=== PATIENT | female | born 1990 | race African-American/Black ===

== ENCOUNTER 2016-12-15 14:58 | Emergency (ER) | payer OTHER ==
[2016-12-15 15:02] VITALS: BP 159/86; PULSE 79; TEMP 98.5; BMI 32.9
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
[2016-12-15] MEDS ORDERED: KETOROLAC TROMETHAMINE 60 MG/2 ML VIAL IM ONE ×2 (16:20→16:22)
[2016-12-15] MEDS ORDERED: KETOROLAC TROMETHAMINE 60 MG/2 ML VIAL ONE (16:22)
[2016-12-15] MEDS ORDERED: diazePAM 5 MG TABLET PO ONE (17:10)
[2016-12-15] MEDS ORDERED: diazePAM 5 MG TABLET ONE (17:15)
== END 2016-12-15 17:43 | disposition home or self-care (01) ==
LOC: JERFT 14:58
PROC: 3E0233Z Introduction of Anti-inflammatory into Muscle, Percutaneous Approach (ICD-10-PCS; principal; 2016-12-15)
DX: M54.6 Pain in thoracic spine (principal); M54.5 Low back pain; V78.6XXA Passenger on bus injured in noncollision transport accident in traffic accident, initial encounter; Y92.414 Local residential or business street as the place of occurrence of the external cause; Y93.89 Activity, other specified; Y99.8 Other external cause status
CPT/HCPCS: 72070-TC; 72100-TC; 84703; 99281-25

== ENCOUNTER 2017-01-02 15:45 | Emergency (ER) | payer OTHER ==
[2017-01-02 15:49] VITALS: BP 145/65; PULSE 70; TEMP 98; BMI 33.8
[2017-01-02] MEDS ORDERED: IBUPROFEN 400 MG TABLET (FP) PO ONE ×2 (16:58→17:08)
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
== END 2017-01-02 17:21 | disposition home or self-care (01) ==
LOC: JERFT 15:45
DX: M54.5 Low back pain (principal); V78 Bus occupant injured in noncollision transport accident
CPT/HCPCS: 99281-25

== ENCOUNTER 2017-04-04 10:33 | Emergency (ER) | payer OTHER ==
[2017-04-04 10:41] VITALS: BP 142/70; PULSE 67; TEMP 98; BMI 33.8
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
[2017-04-04] MEDS ORDERED: KETOROLAC TROMETHAMINE 60 MG/2 ML VIAL IM ONE (11:48)
[2017-04-04] MEDS ORDERED: KETOROLAC TROMETHAMINE 60 MG/2 ML VIAL ONE (12:00)
== END 2017-04-04 12:09 | disposition home or self-care (01) ==
LOC: JERFT 10:33
PROC: 3E0233Z Introduction of Anti-inflammatory into Muscle, Percutaneous Approach (ICD-10-PCS; principal; 2017-04-04)
DX: M54.42 Lumbago with sciatica, left side (principal)
CPT/HCPCS: 84703; 99281-25

== ENCOUNTER 2018-03-29 16:56 | Emergency (ER) | payer OTHER ==
--- NOTE | 2018-03-29 17:54 | PDOC ---
Rapid Medical Evaluation Time Seen by Provider: 03/29/18 17:50 Medical Evaluation: Allergies Allergy/AdvReac Type Severity Reaction Status Date / Time peanut Allergy Verified 04/04/17 10:42 I have performed a brief in-person evaluation of this patient. The patient presents with a chief complaint of: b/l flank pain x 2 days. pain is worse with movement. Pain started while having sex. Patient is approximately 7.5 weeks . first OB apptmt tomorrow. No vaginal bleeding. Pertinent physical exam findings: pain reproduced when patient bends down to touch her toes. I have ordered the following: hcg, UA The patient will proceed to the ED for further evaluation. Discharge Disposition - Diagnosis Abdominal muscle pain - Referrals - Patient Instructions - Post Discharge Activity
[2018-03-29 17:57] VITALS: BP 117/70; PULSE 73; TEMP 98.2; BMI 34.7
--- NOTE | 2018-03-29 18:17 | PDOC ---
History of Present Illness - General Chief Complaint: Pain Stated Complaint: ABD PAIN Time Seen by Provider: 03/29/18 17:50 History Source: Patient Exam Limitations: No Limitations - History of Present Illness Travel History: No Initial Comments: 03/29/18 18:10 27 yr female LMP 02/05/18 positive home tests states last night after sexual intercourse she started having "tightneing sensation" around lower abdomen, pelvis. no bleeding , no cramping no vaginal discharge or back pain. . no pmhx Past History - Past Medical History Allergies/Adverse Reactions: Allergies Allergy/AdvReac Type Severity Reaction Status Date / Time peanut Allergy Verified 03/29/18 17:53 Home Medications: Ambulatory Orders NK [No Known Home Medication] 03/29/18 Asthma: Yes COPD: No - Suicide/Smoking/Psychosocial Hx Smoking History: Never smoked Have you smoked in the past 12 months: Yes Number of Cigarettes Smoked Daily: 3 Information on smoking cessation initiated: No 'Breaking Loose' booklet given: 01/02/17 Hx Alcohol Use: No Drug/Substance Use Hx: No Substance Use Type: None Abd/GI Specific PMHX - Complaint Specific PMHX Colitis: No Diverticulitis: No Gall Bladder Disease: No GERD: No Hepatitis: No Irritable Bowel Synd (IBS): No Pancreatitis: No GI Ulcer Disease: No Review of Systems - Review of Systems Able to Perform ROS?: Yes Is the patient limited Greek proficient: No Constitutional: No: Symptoms Reported HEENTM: No: Symptoms Reported Respiratory: No: Symptoms reported Cardiac (ROS): No: Symptoms Reported ABD/GI: Yes: Symptoms Reported : No: Symptoms Reported *Physical Exam - Vital Signs Last Vital Signs Temp Pulse Resp BP Pulse Ox 98.2 F 73 18 117/70 99 03/29/18 17:53 03/29/18 17:53 03/29/18 17:53 03/29/18 17:53 03/29/18 17:53 - Physical Exam General Appearance: Yes: Nourished, Appropriately Dressed HEENT: positive: EOMI, SHOLA Female Pelvic Exam: positive: other Gastrointestinal/Abdominal: positive: Normal Bowel Sounds, Soft. negative: Tender Lymphatic: negative: Adenopathy Musculoskeletal: positive: Normal Inspection Extremity: positive: Normal Capillary Refill, Normal Inspection, Normal Range of Motion Integumentary: positive: Normal Color, Dry, Warm Neurologic: positive: oleomargarine maker II-XII NML intact, Fully Oriented, Alert, Normal Mood/ Affect, Normal Response, Motor Strength 01/13 Medical Decision Making - Medical Decision Making 03/29/18 18:12 cc: lower pelvis tightening worse with bending forward neg chills neg fever, neg back pain or vag bleeding will r/o UTI confirm pt has appointment tomorrow with [facility] non tender abdomen, soft, no guarding no localized pain *DC/Admit/Observation/Transfer Diagnosis at time of Disposition: Abdominal muscle pain, Pelvic pain - Discharge Dispostion Disposition: HOME Condition at time of disposition: Good - Referrals - Patient Instructions Additional Instructions: follow up tomorrow with your FIELD EXAMINER as planned they can repeat the test with blood work if needed take motrin for any pain - Post Discharge Activity
[2018-03-29 18:23] LABS: URINE APPEARANCE SLCLOUDY; URINE BILIRUBIN NEGATIVE (<2.0 mg/dL); URINE COLOR YELLOW; URINE GLUCOSE (UA) NEGATIVE (NEGATIVE); URINE KETONE NEGATIVE (NEGATIVE); URINE LEUK ESTERASE NEGATIVE (NEGATIVE); URINE NITRITE NEGATIVE (NEGATIVE); URINE PROTEIN NEGATIVE (NEGATIVE); URINE UROBILINOGEN 4.0 E.U/dl mg/dL (0.2-1.0)
[2018-03-29 18:25] LABS: HCG,QUALITATIVE URINE NEGATIVE
== END 2018-03-29 19:17 | disposition home or self-care (01) ==
LOC: JERFT 16:56
DX: O26.891 Other specified pregnancy related conditions, first trimester (principal); R10.2 Pelvic and perineal pain; M79.1 Myalgia; Z3A.01 Less than 8 weeks gestation of pregnancy
CPT/HCPCS: 81003; 84703; 99281-25

== ENCOUNTER 2018-12-21 21:11 | Emergency (ER) | payer OTHER ==
[2018-12-21 21:24] VITALS: BP 127/78; PULSE 78; TEMP 98.2; BMI 38.4
[2018-12-21] MEDS ORDERED: ACETAMINOPHEN 325 MG TABLET (FP) PO ONE (22:35)
--- NOTE | 2018-12-21 22:35 | PDOC ---
Attending Attestation - HPI HPI: The patient is a 28 year old female, with a significant PMH of asthma, who presents to the emergency department today complaining of multiple cold symptoms for 6 days. Patient notes she began experiencing diarrhea 6 days ago, which she thinks was related to drinking the night before. The next day, patient woke up with nasal congestion, sinus pressure, productive cough with yellow sputum, intermittent fevers (highest was 102), and headache. She reports associated decreased PO intake secondary to loss of appetite. Patient went to urgent care 4 days ago, where she was negative for flu and strep. Patient reports using her inhaler more frequently to help alleviate her symptoms. She also endorses being 10 days late on her period, but had a test done at urgent care which was negative. Patient returns to the ED today because her symptoms have not resolved. The patient denies chest pain, headache and dizziness. Denies fever, chills, nausea, vomit, diarrhea and constipation. Denies dysuria, frequency, urgency and hematuria. Allergies: NKA Past surgical history: None reported Social history: Current tobacco smoker (1 pack a day). Marijuana user. PCP: Dr. Ruma Mccormack 12/21/18 23:57 - Physicial Exam PE: GENERAL: +Smells like marijuana. Awake, alert, and oriented. The patient is in no acute distress. HEAD: +Severe sinus tenderness to palpation. Normal with no signs of trauma. EYES: PERRLA, EOMI, sclera anicteric, conjunctiva clear. ENT: +Severe sinus tenderness to palpation. Ears normal, nares patent, oropharynx clear without exudates. Moist mucous membranes. NECK: Normal range of motion, supple without lymphadenopathy, JVD, or masses. LUNGS: Breath sounds equal, clear to auscultation bilaterally. No wheezes, and no crackles. HEART:Regular rate and rhythm, normal S1 and S2 without murmur, rub or gallop. ABDOMEN: Soft, nontender, normoactive bowel sounds. No guarding, no rebound. No masses palpable. EXTREMITIES: Normal range of motion, no edema. No clubbing or cyanosis. No erythema, or tenderness. NEUROLOGICAL: Cranial nerves II through XII grossly intact. Normal speech. No focal neurological deficits. MUSCULOSKELETAL: Back non-tender to palpation, no CVA tenderness SKIN: Warm, Dry, normal turgor, no rashes or lesions noted. 12/21/18 23:58 - Medical Decision Making EXAM#: TYPE/EXAM: RESULT: [id number] RAD/CHEST PA LAT Clinical information: Rule out infection. Impression Unremarkable examination without evidence of acute lung disease. Reported By: Claudia Acevedo MD 12/21/18 23:58 Documentation prepared by TAD Reddy, acting as medical staff specialist for Christine Beard MD. 12/22/18 03:56 <Kellie Ponce - Last Filed: 12/22/18 03:56> - Resident Resident Name: Libra Holt - ED Attending Attestation I have performed the following: I have examined & evaluated the patient, The case was reviewed & discussed with the resident, I agree w/resident's findings & plan, Exceptions are as noted - Medical Decision Making 12/21/18 23:35 Ms Don presents to the ER with a complaint of congestion, cough, fevers yesterday symptoms began last week with 1 day of diarrhea since then she has noted URI symptoms Was seen at Urgent Care 4 days ago where Influenza and rapid strep were negative Pt told symptoms were viral and anticipated that she would be able to return to work Pt continues to feel ill 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 Pt has a h/o asthma Was using MDI and neb Pt continues to smoke cigarettes and Marijuanna Temp yesterday 101 on exam: Lungs clear RRR Maxillary tenderness to palpation Will do: UHcg CXR Plan to d/x on Augmentin, sudafed and afrin spray Follow up with PMD 12/22/18 00:14 CXR - nml Will discharge to home with treatment for sinusitis Clinical impression: sinusitis, initial presentation <Christine Beard - Last Filed: 12/22/18 20:26> *DC/Admit/Observation/Transfer <Kellie Ponce - Last Filed: 12/22/18 03:56> <Christine Beard - Last Filed: 12/22/18 20:26> Diagnosis at time of Disposition: Tenderness over frontal sinus, Cough, Congestion of nasal sinus - Discharge Dispostion Disposition: HOME - Prescriptions Prescriptions: Amoxicillin/Potassium Clav [Augmentin 875-125 Tablet] 1 each PO BID #10 tablet Pseudoephedrine HCl [Sudafed -] 30 mg PO DAILY #7 tablet - Referrals Referrals: Ruma Mccormack MD [Primary Care Provider] - - Patient Instructions Additional Instructions: please follow up with your primary care physician within one week please take the medication augmentin twice a day for 5 days with food please take sudafed alternate with tylenol and advil every 4-6 hours drink plenty of fluids if you being to experience worsening or symptoms please return to the emergency room immediately - Post Discharge Activity Forms/Work/School Notes: Back to Work
--- NOTE | 2018-12-21 22:46 | PDOC ---
History of Present Illness - General Chief Complaint: Cold Symptoms Stated Complaint: COLD/FLU SYMPTOMS/WEAK/DIZZY/CONJESTED Time Seen by Provider: 12/21/18 22:18 History Source: Patient Exam Limitations: No Limitations - History of Present Illness Initial Comments: 12/21/18 22:40 28 y/o female with PMH of asthma presents with cold symptoms. Patient states that her symptoms started over the weekend- she initially began to have diarrhea which she attributed to drinking the night before. She then began to develop cold/congestive symptoms and sinus pressure. She took nyquil/ dayquil.tylenol with minimal relief. She went to urgent care who checked her for flu and strep, both of which were negative and discharged her home with no medications. She continued to feel poorly so she came to the hospital. She took her temperature a few times, yesterday being the last time she took her temp and it was 102. She denies any body aches/nausea/vomiting however she does endorse that she has had a decreased appetite. She is also 10 days late on her period, test was done when she went to [facility] and it was negative. She denies any sick contacts at home or any recent travel. She does endorse having a headache. In terms of her asthma, she usually uses a pump and this week has been using her pump more frequently since shes been not feeling well. Timing/Duration: constant Severity: moderate Modifying Factors: improves with: rest Associated Symptoms: reports: cough, fever/chills, loss of appetite Past History - Travel Traveled outside of the country in the last 30 days: No Close contact w/someone who was outside of country & ill: No - Past Medical History Allergies/Adverse Reactions: Allergies Allergy/AdvReac Type Severity Reaction Status Date / Time No Known Drug Allergies Allergy Verified 12/22/18 00:00 peanut Allergy Verified 12/22/18 00:00 Home Medications: Ambulatory Orders Amoxicillin/Potassium Clav [Augmentin 875-125 Tablet] 1 each PO BID #10 tablet 12/21/18 Pseudoephedrine HCl [Sudafed -] 30 mg PO DAILY #7 tablet 12/22/18 Asthma: Yes COPD: No - Surgical History Other Surgical History: 12/21/18 22:47 adenoid and tonsil removal - Reproductive History LMP comment: patient is 10 days - Suicide/Smoking/Psychosocial Hx Smoking History: Never smoked Have you smoked in the past 12 months: No Number of Cigarettes Smoked Daily: 3 Information on smoking cessation initiated: No 'Breaking Loose' booklet given: 01/02/17 Hx Alcohol Use: No Drug/Substance Use Hx: No Substance Use Type: None Review of Systems - Review of Systems Able to Perform ROS?: Yes Constitutional: Yes: Fever HEENTM: No: Blurred Vision, Double Vision Respiratory: Yes: Cough Cardiac (ROS): No: Chest Pain, Palpitations ABD/GI: Yes: Poor Appetite. No: Nausea, Vomiting Musculoskeletal: No: Muscle Weakness Neurological: Yes: Headache *Physical Exam - Vital Signs Last Vital Signs Temp Pulse Resp BP Pulse Ox 98.2 F 78 21 H 127/78 100 12/21/18 21:21 12/21/18 21:21 12/21/18 21:21 12/21/18 21:21 12/21/18 21:21 - Physical Exam General Appearance: Yes: Nourished HEENT: positive: Sinus Tenderness. negative: Tonsillar Exudate, Tonsillar Erythema Neck: positive: Normal Thyroid Respiratory/Chest: positive: Lungs Clear, Normal Breath Sounds. negative: Respiratory Distress Cardiovascular: positive: Regular Rhythm, Regular Rate, S1, S2 Gastrointestinal/Abdominal: positive: Normal Bowel Sounds, Flat, Soft Musculoskeletal: negative: CVA Tenderness Integumentary: negative: Diaphoresis Neurologic: positive: Fully Oriented, Alert Medical Decision Making - Medical Decision Making 12/21/18 22:59 cbc/cmp/preg test CXR *DC/Admit/Observation/Transfer Diagnosis at time of Disposition: Tenderness over frontal sinus, Cough, Congestion of nasal sinus - Discharge Dispostion Disposition: HOME - Prescriptions Prescriptions: Amoxicillin/Potassium Clav [Augmentin 875-125 Tablet] 1 each PO BID #10 tablet - Referrals Referrals: Ruma Mccormack MD [Primary Care Provider] - - Patient Instructions Additional Instructions: please follow up with your primary care physician within one week please take the medication augmentin twice a day for 5 days with food please take sudafed alternate with tylenol and advil every 4-6 hours drink plenty of fluids if you being to experience worsening or symptoms please return to the emergency room immediately - Post Discharge Activity - Attestations Physician Attestion: 12/22/18 00:06 bear polanco
[2018-12-21] MEDS ORDERED: PSEUDOEPHEDRINE HCL 30 MG TABLET PO ONE (23:01)
[2018-12-21] MEDS ORDERED: PSEUDOEPHEDRINE HCL 60 MG TABLET ONE (23:37)
[2018-12-21] MEDS ORDERED: ACETAMINOPHEN 325 MG TABLET (FP) ONE (23:37)
== END 2018-12-22 00:44 | disposition home or self-care (01) ==
LOC: JER 21:11 → JERFT 21:11 → JER 12-22 00:44
DX: J34.89 Other specified disorders of nose and nasal sinuses (principal)
CPT/HCPCS: 71046-TC-FY; 84703; 99282-25

== ENCOUNTER 2020-12-26 23:40 | Emergency (ER) | payer OTHER ==
[2020-12-27 00:04] VITALS: BP 121/76; PULSE 98; TEMP 98; BMI 34.7
[2020-12-27 01:03] LABS: URINE APPEARANCE CLEAR; URINE BILIRUBIN NEGATIVE (NEGATIVE); URINE COLOR YELLOW; URINE GLUCOSE (UA) NEGATIVE (NEGATIVE); URINE KETONE NEGATIVE (NEGATIVE); URINE LEUK ESTERASE NEGATIVE (NEGATIVE); URINE NITRITE NEGATIVE (NEGATIVE); URINE PROTEIN NEGATIVE (NEGATIVE); URINE UROBILINOGEN 0.2 mg/dL (0.2-1.0)
[2020-12-27] MEDS ORDERED: ACETAMINOPHEN 325 MG TABLET (FP) PO ONE (01:23)
[2020-12-27] MEDS ORDERED: ACETAMINOPHEN 325 MG TABLET (FP) ONE (01:29)
[2020-12-27] MEDS ORDERED: LACTULOSE 20 GM/30 ML UDC (FOR ORAL USE ONLY) PO ONE (02:34)
[2020-12-27] MEDS ORDERED: LACTULOSE 20 GM/30 ML UDC (FOR ORAL USE ONLY) ONE (02:40)
[2020-12-27 03:50] LABS: HIV INTERPRETATION NEGATIVE (NEGATIVE)
== END 2020-12-27 02:47 | disposition home or self-care (01) ==
LOC: JER 23:40
DX: R10.2 Pelvic and perineal pain (principal); K59.00 Constipation, unspecified
CPT/HCPCS: 36415; 80074; 81003; 84703; 86780; 87086; 87389; 87491; 87591; 99285-25

== ENCOUNTER 2021-02-21 01:59 | Emergency (ER) | payer OTHER ==
[2021-02-21] MEDS ORDERED: KETOROLAC TROMETHAMINE 15 MG/ML VIAL IM ONE (02:26)
[2021-02-21] MEDS ORDERED: KETOROLAC TROMETHAMINE 30 MG/1 ML VIAL ONE (02:53)
[2021-02-21 03:14] VITALS: BP 138/79; PULSE 82; TEMP 98.7; BMI 40.2
== END 2021-02-21 04:34 | disposition home or self-care (01) ==
LOC: JER 01:59
PROC: 3E0233Z Introduction of Anti-inflammatory into Muscle, Percutaneous Approach (ICD-10-PCS; principal; 2021-02-21)
DX: M79.672 Pain in left foot (principal)
CPT/HCPCS: 73610-TC-LT-FY; 73630-TC-LT; 99284-25

== ENCOUNTER 2022-06-07 06:42 | Emergency (ER) | payer OTHER ==
[2022-06-07 06:52] VITALS: BP 130/95; PULSE 89; RESP 17; TEMP 97.9; BMI 40.2
[2022-06-07] MEDS ORDERED: ACETAMINOPHEN 325 MG TABLET (FP) PO ONE (07:26)
[2022-06-07] MEDS ORDERED: DEXAMETHASONE 4 MG TABLET (FP) PO ONE (07:26)
[2022-06-07] MEDS ORDERED: ALBUTEROL SO4 2.5/IPRATROPIUM 0.5 INH SOL 3 ML VIAL.NEB. NEB ONE (07:31)
[2022-06-07] MEDS ORDERED: ACETAMINOPHEN 325 MG TABLET (FP) ONE (07:31)
[2022-06-07] MEDS ORDERED: DEXAMETHASONE 4 MG TABLET (FP) ONE (07:32)
[2022-06-07] MEDS: ALBUTEROL SO4 2.5/IPRATROPIUM 0.5 INH SOL 3 ML VIAL.NEB. NEB SCH ×4 (07:35→08:17)
== END 2022-06-07 08:36 | disposition home or self-care (01) ==
LOC: JER 06:42 → JERFT 06:42
PROC: 3E0F7GC Introduction of Other Therapeutic Substance into Respiratory Tract, Via Natural or Artificial Opening (ICD-10-PCS; principal; 2022-06-07)
DX: J45.901 Unspecified asthma with (acute) exacerbation (principal)
CPT/HCPCS: 0241U-QW; 99283-25

== ENCOUNTER 2022-06-30 09:41 | Emergency (ER) | payer OTHER ==
[2022-06-30 09:54] VITALS: BP 137/63; PULSE 91; RESP 18; TEMP 98.4; BMI 37.3
[2022-06-30] MEDS ORDERED: SODIUM CHLORIDE 0.9% 500 ML INFUS.BAG IV ONE (10:32)
[2022-06-30] MEDS ORDERED: ALBUTEROL SO4 2.5/IPRATROPIUM 0.5 INH SOL 3 ML VIAL.NEB. NEB ONE ×2 (10:34→10:57)
[2022-06-30 11:39] LABS: BASO % 0.6 % (0-2.0); EOS % 5.6 % (0-4.5); LYMPH % 41.9 % (8-40); MCH 26.2 pg (25.7-33.7); MCHC 32.5 g/dl (32.0-36.0); MEAN CELL VOLUME 80.5 fl (80-96); MEAN PLT VOLUME 8.7 fl (7.5-11.1); MONO % 6.5 % (3.8-10.2); NEUT % 45.4 % (42.8-82.8); PLATELET COUNT 294 10^3/uL (134-434); RBC 4.59 M/mm3 (3.60-5.2); RDW 14.2 % (11.6-15.6); WHITE BLOOD COUNT 5.3 K/mm3 (4.0-10.0)
[2022-06-30 11:47] LABS: INR 1.19 (0.83-1.09); PROTHROMBIN TIME (PATIENT) 13.7 SEC (9.7-13.0)
[2022-06-30 11:50] LABS: ACTIVATED PTT 35.3 SECONDS (25.2-36.5)
[2022-06-30 12:00] LABS: ALBUMIN 3.8 g/dl (3.4-5.0); BLOOD UREA NITROGEN 7.3 mg/dL (7-18)
[2022-06-30 12:02] LABS: CREATININE 0.7 mg/dL (0.55-1.3)
[2022-06-30 12:04] LABS: TOT PROT 7.3 g/dl (6.4-8.2)
[2022-06-30 12:06] LABS: BILIRUBIN,TOTAL 0.5 mg/dL (0.2-1)
[2022-06-30 13:03] LABS: PH,URINE 5.5 (5.0-8.0); URINE APPEARANCE CLOUDY; URINE BILIRUBIN NEGATIVE (NEGATIVE); URINE COLOR YELLOW; URINE GLUCOSE (UA) NEGATIVE (NEGATIVE); URINE KETONE NEGATIVE (NEGATIVE); URINE LEUK ESTERASE NEGATIVE (NEGATIVE); URINE NITRITE NEGATIVE (NEGATIVE); URINE PROTEIN NEGATIVE (NEGATIVE)
== END 2022-06-30 14:40 | disposition home or self-care (01) ==
LOC: JER 09:41
PROC: 3E0F7GC Introduction of Other Therapeutic Substance into Respiratory Tract, Via Natural or Artificial Opening (ICD-10-PCS; principal; 2022-06-30)
DX: O20.9 Hemorrhage in early pregnancy, unspecified (principal); Z3A.01 Less than 8 weeks gestation of pregnancy
CPT/HCPCS: 36415; 76817-TC; 80053; 81003; 84702; 84703; 85025; 85610; 85730; 86850; 86900; 86901; 87086; 93005; 93010; 99285-25

== ENCOUNTER 2022-07-03 12:01 | Emergency (ER) | payer OTHER ==
[2022-07-03 12:06] VITALS: BP 118/70; PULSE 95; RESP 18; TEMP 98.1; BMI 37.5
[2022-07-03] MEDS ORDERED: RHO(D) IMMUNE GLOBULIN 1,500 UNIT DISP.SYRIN IM ONE (12:23)
[2022-07-03 13:32] LABS: EOS % 4.9 % (0-4.5); HEMATOCRIT 38.8 % (32.4-45.2); HEMOGLOBIN 12.2 GM/dL (10.7-15.3); LYMPH % 51.6 % (8-40); MCH 25.3 pg (25.7-33.7); MCHC 31.5 g/dl (32.0-36.0); MEAN CELL VOLUME 80.3 fl (80-96); MEAN PLT VOLUME 8.9 fl (7.5-11.1); MONO % 6.9 % (3.8-10.2); NEUT % 35.6 % (42.8-82.8); PH,URINE 5.5 (5.0-8.0); PLATELET COUNT 288 10^3/uL (134-434); RBC 4.83 M/mm3 (3.60-5.2); URINE APPEARANCE CLOUDY; URINE BILIRUBIN NEGATIVE (NEGATIVE); URINE COLOR YELLOW; URINE GLUCOSE (UA) NEGATIVE (NEGATIVE); URINE KETONE NEGATIVE (NEGATIVE); URINE LEUK ESTERASE NEGATIVE (NEGATIVE); URINE NITRITE NEGATIVE (NEGATIVE); URINE PROTEIN NEGATIVE (NEGATIVE); WHITE BLOOD COUNT 4.1 K/mm3 (4.0-10.0)
[2022-07-03 13:49] LABS: ALBUMIN 3.7 g/dl (3.4-5.0); BLOOD UREA NITROGEN 8.7 mg/dL (7-18); CALCIUM 9.1 mg/dL (8.5-10.1)
[2022-07-03 13:52] LABS: CREATININE 0.7 mg/dL (0.55-1.3)
[2022-07-03 13:53] LABS: TOT PROT 7.1 g/dl (6.4-8.2)
[2022-07-03 13:54] LABS: BILIRUBIN,TOTAL 0.4 mg/dL (0.2-1)
== END 2022-07-03 15:30 | disposition left against medical advice (07) ==
LOC: JERFT 12:01
DX: R10.2 Pelvic and perineal pain (principal)
CPT/HCPCS: 36415; 76817-TC; 80053; 81003; 84702; 85025; 86850; 86900; 86901; 86999; 87086; 99284-25; J1561

== ENCOUNTER 2023-01-03 06:33 | Emergency (ER) | payer OTHER ==
[2023-01-03 06:50] VITALS: TEMP 97.3; BMI 38.4
[2023-01-03] MEDS ORDERED: predniSONE 20 MG TABLET (UD) PO ONE (07:56)
[2023-01-03] MEDS ORDERED: predniSONE 20 MG TABLET (UD) ONE (08:00)
[2023-01-03] MEDS ORDERED: ALBUTEROL SO4 2.5/IPRATROPIUM 0.5 INH SOL 3 ML VIAL.NEB. NEB ONE (08:00)
[2023-01-03] MEDS ORDERED: ALBUTEROL SO4 2.5/IPRATROPIUM 0.5 INH SOL 3 ML VIAL.NEB. NEB SCH (08:00)
[2023-01-03 08:49] VITALS: BP 140/75; PULSE 95; RESP 18
== END 2023-01-03 09:00 | disposition home or self-care (01) ==
LOC: JER 06:33
PROC: 3E0F7GC Introduction of Other Therapeutic Substance into Respiratory Tract, Via Natural or Artificial Opening (ICD-10-PCS; principal; 2023-01-03)
DX: J45.21 Mild intermittent asthma with (acute) exacerbation (principal); Z20.822 Contact with and (suspected) exposure to COVID-19
CPT/HCPCS: 0241U-QW; 71046-TC-FY; 93005; 93010; 99285-25

== ENCOUNTER 2024-05-24 08:36 | Emergency (ER) | payer OTHER ==
[2024-05-24 08:46] VITALS: TEMP 98.6; BMI 40.2
[2024-05-24 10:02] LABS: EPI CELLS >36 /uL (0-25.1); HYALINE CASTS 3 /uL (0-3.1); PH,URINE 5.5 (5.0-8.0); URINE APPEARANCE CLOUDY; URINE BACTERIA 248 /uL (0-1359); URINE BILIRUBIN NEGATIVE (NEGATIVE); URINE COLOR DK YELLOW; URINE GLUCOSE (UA) NEGATIVE (NEGATIVE); URINE KETONE TRACE (NEGATIVE); URINE LEUK ESTERASE NEGATIVE (NEGATIVE); URINE NITRITE NEGATIVE (NEGATIVE); URINE PROTEIN 2+ (NEGATIVE); URINE RBC 85 /uL (0-23.9); URINE WBC 28 /uL (0-25.8)
[2024-05-24 10:41] LABS: BASO % 0.7 % (0-2.0); EOS % 4.5 % (0-4.5); HEMATOCRIT 38.2 % (32.4-45.2); HEMOGLOBIN 12.1 GM/dL (10.7-15.3); MCH 25.2 pg (25.7-33.7); MCHC 31.6 g/dl (32.0-36.0); MEAN PLT VOLUME 8.7 fl (7.5-11.1); MONO % 7.2 % (3.8-10.2); NEUT % 38.6 % (42.8-82.8); PLATELET COUNT 288 10^3/uL (134-434); RBC 4.77 M/mm3 (3.60-5.2); RDW 15.4 % (11.6-15.6); WHITE BLOOD COUNT 5.2 K/mm3 (4.0-10.0)
[2024-05-24 11:19] LABS: POTASSIUM 3.9 mmol/L (3.5-5.1)
[2024-05-24 11:20] LABS: CALCIUM 8.9 mg/dL (8.5-10.1)
[2024-05-24 11:21] LABS: ALBUMIN 3.9 g/dl (3.4-5.0); BLOOD UREA NITROGEN 9.5 mg/dL (7-18)
[2024-05-24 11:25] LABS: BILIRUBIN,TOTAL 0.3 mg/dL (0.2-1); CREATININE 0.7 mg/dL (0.55-1.3); TOT PROT 7.1 g/dl (6.4-8.2)
[2024-05-24 13:01] LABS: HIV INTERPRETATION NEGATIVE (NEGATIVE)
[2024-05-24 13:38] VITALS: BP 126/84; PULSE 72; RESP 18
[2024-05-24] MEDS: RHO(D) IMMUNE GLOBULIN 1,500 UNIT DISP.SYRIN IM ONE (14:55)
== END 2024-05-24 16:46 | disposition home or self-care (01) ==
LOC: JER 08:36
DX: O20.9 Hemorrhage in early pregnancy, unspecified (principal); Z3A.00 Weeks of gestation of pregnancy not specified
CPT/HCPCS: 36415; 76817-TC; 80053; 81003; 84702; 84703; 85025; 86803; 86850; 86900; 86901; 87086; 87389; 96372; 99284-25; J2790

== ENCOUNTER 2024-05-26 09:48 | Emergency (ER) | payer OTHER ==
[2024-05-26 09:53] VITALS: BP 129/76; PULSE 84; RESP 18; TEMP 98.1; BMI 42.0
[2024-05-26 10:18] LABS: BASO % 0.8 % (0-2.0); EOS % 4.8 % (0-4.5); HEMATOCRIT 36.9 % (32.4-45.2); HEMOGLOBIN 11.9 GM/dL (10.7-15.3); LYMPH % 44.4 % (8-40); MCH 25.5 pg (25.7-33.7); MCHC 32.4 g/dl (32.0-36.0); MEAN CELL VOLUME 78.7 fl (80-96); MEAN PLT VOLUME 8.3 fl (7.5-11.1); MONO % 7.5 % (3.8-10.2); NEUT % 42.5 % (42.8-82.8); PLATELET COUNT 288 10^3/uL (134-434); RBC 4.68 M/mm3 (3.60-5.2); RDW 15.3 % (11.6-15.6); WHITE BLOOD COUNT 4.4 K/mm3 (4.0-10.0)
== END 2024-05-26 11:20 | disposition home or self-care (01) ==
LOC: JER 09:48
DX: O03.9 Complete or unspecified spontaneous abortion without complication (principal)
CPT/HCPCS: 36415; 84702; 85025; 99284-25

== ENCOUNTER 2025-02-10 09:00 | Inpatient (IN) | payer OTHER ==
[2025-03-10 16:02] VITALS: BMI 42.0
[2025-03-17] MEDS ORDERED: ROCURONIUM BROMIDE 50 MG/5 ML SYRINGE ONE ×2 (07:42→10:19)
[2025-03-17] MEDS ORDERED: PROPOFOL 20 ML ONE ×2 (07:42→11:47)
[2025-03-17] MEDS ORDERED: SUCCINYLCHOLINE CHLORIDE 200 MG/10 ML SYRINGE ONE (07:42)
[2025-03-17] MEDS ORDERED: MIDAZOLAM HCL 2 MG/2 ML SINGLE DOSE VIAL ONE ×2 (07:42→08:46)
[2025-03-17] MEDS ORDERED: BUPIVACAINE HCL/PF 0.25% (2.5MG/ML) 10 ML VIAL ONE (08:46)
[2025-03-17] MEDS ORDERED: ONDANSETRON 4 MG/2 ML VIAL ONE (11:35)
[2025-03-17] MEDS ORDERED: KETOROLAC TROMETHAMINE 30 MG/1 ML VIAL ONE (11:35)
[2025-03-17] MEDS ORDERED: DEXAMETHASONE SOD PHOSPHATE 4 MG/1 ML VIAL ONE (11:35)
[2025-03-17] MEDS ORDERED: ALBUTEROL SO4 HFA INHALER IH ONE (11:35)
[2025-03-17] MEDS ORDERED: SUGAMMADEX SODIUM 200 MG/2 ML VIAL ONE (11:44)
[2025-03-17] MEDS ORDERED: BENZOIN/ALOE VERA/STORAX/TOLU 58 ML BOTTLE ONE (12:03)
[2025-03-17] MEDS ORDERED: IBUPROFEN 600 MG TABLET (FP) PO PRN (12:23)
[2025-03-17] MEDS ORDERED: ACETAMINOPHEN INJECTION 100 ML ONE (12:53)
[2025-03-17] MEDS: ACETAMINOPHEN 1000 MG/100 ML BAG IVPB ONE (12:55)
[2025-03-17] MEDS: TRANEXAMIC ACID 1000 MG/10 ML VIAL IVPUSH ONE (13:24)
[2025-03-17] MEDS: morphine SULFATE/PF 1 MG/2 ML (2cc Syringe - QUVA) ONE (13:24)
[2025-03-17] MEDS: CEFAZOLIN SODIUM 2 GM in DEXTROSE 5%-WATER 100 ML IVPB ONE (13:25)
[2025-03-17] MEDS: CEFAZOLIN 2 GM/D5W 2 GM/50 ML ML IVPB SCH (17:58)
[2025-03-17] MEDS: IBUPROFEN (CALDOLOR) 800 MG/200 ML PREMIX BAGS IVPB PRN (23:54)
[2025-03-17] MEDS: LACTATED RINGERS SOLUTION 1,000 ML IV SCH (23:55)
[2025-03-18 01:59] VITALS: RESP 18
[2025-03-18] MEDS: DOCUSATE SODIUM 100 MG CAPSULE (FP) PO PRN (05:54)
[2025-03-18 07:37] LABS: ABSOLUTE IMMATURE GRANULOCYTES 0.05 x10^3/uL (0.0-0.031); BASOPHILS # 0.00 x10^3/uL (0.01-0.08); EOSINOPHIL % 0.1 % (0.7-5.8); EOSINOPHILS # 0.01 x10^3/uL (0.04-0.36); MCHC 30.6 g/dl (32.2-35.5); MEAN CELL VOLUME 82.0 fl (79.4-94.8); MEAN PLT VOLUME 10.9 fl (9.4-12.3); MONOCYTE # 0.56 x10^3/uL (0.24-0.86); MONOCYTE % 5.8 % (4.7-12.5); RDW 15.2 % (12.1-16.8)
[2025-03-18 08:10] LABS: CO2 24.0 mmol/L (21-32); GLUCOSE,RANDOM 109.0 mg/dL (74-106)
[2025-03-18 08:13] LABS: CREATININE 0.7 mg/dL (0.55-1.3); SGOT/AST 11.0 U/L (15-37); SGPT/ALT 16.0 U/L (13-61)
[2025-03-18 08:14] LABS: TOT PROT 5.4 g/dl (6.4-8.2)
[2025-03-18 08:15] LABS: ALK PHOS 65.0 U/L (45-117)
[2025-03-18] MEDS: PNEUMOC 20-VAL CONJ-DIP CRM/PF 0.5 ML SYRINGE IM ONE (12:25)
[2025-03-18] MEDS: IBUPROFEN 400 MG TABLET (FP) PO PRN (16:00)
[2025-03-18] MEDS: FAMOTIDINE 20 MG TABLET PO SCH (21:40)
[2025-03-19] MEDS: ACETAMINOPHEN 325 MG TABLET (FP) PO PRN (09:15)
[2025-03-19 09:33] VITALS: BP 98/62; PULSE 77; TEMP 98.1
== END 2025-03-19 11:40 | disposition home or self-care (01) | DRG 519 ==
LOC: J2C 03-17 06:59 → J3W 03-17 14:03
PROVIDERS: ADMIT Obstetrics & Gynecology; ATTEND Obstetrics & Gynecology
PROC: 0UB90ZZ Excision of Uterus, Open Approach (ICD-10-PCS; principal; 2025-03-17 09:00)
DX: D25.9 Leiomyoma of uterus, unspecified (principal); N92.0 Excessive and frequent menstruation with regular cycle; E66.01 Morbid (severe) obesity due to excess calories; Z68.41 Body mass index [BMI] 40.0-44.9, adult
CPT/HCPCS: 36415; 80053; 81025; 85025; 86850; 86900; 86901; 88305-TC; 90677; 94010; 94760

== ENCOUNTER 2025-05-09 02:16 | Emergency (ER) | payer OTHER ==
[2025-05-09 02:23] VITALS: TEMP 98.1; BMI 42.0
[2025-05-09] MEDS ORDERED: predniSONE 20 MG TABLET (UD) ONE (03:14)
[2025-05-09] MEDS ORDERED: FAMOTIDINE 20 MG TABLET ONE (03:14)
[2025-05-09] MEDS ORDERED: diphenhydrAMINE HCL 25 MG CAPSULE (FP) PO ONE (03:14)
[2025-05-09] MEDS: predniSONE 20 MG TABLET (UD) PO ONE (03:24)
[2025-05-09] MEDS: FAMOTIDINE 20 MG TABLET PO ONE (03:24)
[2025-05-09] MEDS: diphenhydrAMINE HCL 25 MG CAPSULE (FP) PO ONE (03:24)
[2025-05-09 05:26] VITALS: BP 120/74; PULSE 82; RESP 18
== END 2025-05-09 04:50 | disposition home or self-care (01) ==
LOC: JER 02:16
DX: L50.9 Urticaria, unspecified (principal); L29.9 Pruritus, unspecified
CPT/HCPCS: 99283-25